=== PATIENT | female | born 1965 | race Hispanic/Latino ===

== ENCOUNTER 2018-11-02 15:42 | Emergency (ER) | payer BC, OTHER ==
[~2018-11-02] VITALS: Ht 160 cm; Wt 69.9 kg
[~2018-11-02 15:42] MED LIST: METFORMIN HCL500 MG PO; OMEPRAZOLE40 MG PO
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
== END 2018-11-02 18:09 | disposition home or self-care (01) ==
LOC: FSED 15:42
DX: M54.2 Cervicalgia (principal); S13.4XXA Sprain of ligaments of cervical spine, initial encounter; M54.6 Pain in thoracic spine; S23.3XXA Sprain of ligaments of thoracic spine, initial encounter; M54.5 Low back pain; S33.5XXA Sprain of ligaments of lumbar spine, initial encounter; V43.52XA Car driver injured in collision with other type car in traffic accident, initial encounter; Y92.488 Other paved roadways as the place of occurrence of the external cause
CPT/HCPCS: 72040; 72070; 72100; 81003; 99284